=== PATIENT | female | born 1970 | race Caucasian/White ===

== ENCOUNTER 2017-02-04 09:20 | Emergency (ER) | payer OTHER ==
[2017-02-04 09:20] VITALS: BMI 24.0
[2017-02-04] MEDS ORDERED: Belladonna-Phenobarbital PO STA (09:45)
[2017-02-04] MEDS ORDERED: Lactated Ringer's 1,000 ML IV STA (09:45)
--- NOTE | 2017-02-04 09:49 | C.PDOC ---
History Of Present Illness <Niecy Darling - Last Filed: 02/04/17 14:01> <Tawanna Rehman - Last Filed: 02/04/17 14:36> 44 year-old female with PMH of colon and liver cancer, presents to the ED with complaints of abdominal pain for the past week and worsened over the last 2 days. The patient describes the pain as generalized intermittent episodes of cramps and twisting of her abdomen. The pain is non-radiating, and associated with nausea and constipation. She reports last bowel movement was 3 days ago. She states it may be due to narcotic pain medication percocet which she takes daily. Patient states her last chemotherapy treatment was 2 weeks ago. Denies any fever, chills, vomiting, urinary symptoms. (Niecy Darling) History Per: Patient History/Exam Limitations: no limitations Onset/Duration Of Symptoms: Days Current Symptoms Are (Timing): Still Present Location Of Pain/Discomfort: Diffuse <Niecy Darling - Last Filed: 02/04/17 14:01> <Tawanna Rehman - Last Filed: 02/04/17 14:36> Time Seen by Provider: 02/04/17 09:30 Chief Complaint (Nursing): Abdominal Pain Past Medical History Reviewed: Historical Data, Nursing Documentation, Vital Signs - Medical History PMH: Gastritis Surgical History: No Surg Hx, Family History: States: No Known Family Hx - Social History Hx Alcohol Use: No Hx Substance Use: No - Immunization History Hx Tetanus Toxoid Vaccination: No Hx Influenza Vaccination: No Hx Pneumococcal Vaccination: No <Niecy Darling - Last Filed: 02/04/17 14:01> Vital Signs: Last Vital Signs Temp 97.8 F 02/04/17 13:57 Pulse 78 02/04/17 13:57 Resp 16 02/04/17 13:57 BP 146/87 02/04/17 13:57 Pulse Ox 98 02/04/17 14:01 - [facility] Procedures CLOSED ENDOSCOPIC BIOPSY OF LARGE INTESTINE (11/04/14) DX ULTRASOUND-ABDOMEN (11/04/14) PERCUTAN NEEDLE BX OF LIVER (11/04/14) Review Of Systems Constitutional: Negative for: Fever, Chills Gastrointestinal: Positive for: Nausea, Abdominal Pain, Constipation Musculoskeletal: Negative for: Back Pain Skin: Negative for: Rash <Niecy Darling Last Filed: 02/04/17 14:01> Physical Exam - Physical Exam Appears: No Acute Distress, Chronically Ill Skin: Normal Color, Warm, Dry, No Rash Head: Atraumatic, Normacephalic Eye(s): bilateral: PERRL, EOMI Oral Mucosa: Moist Neck: Supple Chest: No Tenderness, Other (Portacath to left upper chest wall) Cardiovascular: Rhythm Regular Respiratory: No Rales, No Rhonchi, No Wheezing, Other (clear to asucultation bilaterally) Gastrointestinal/Abdominal: Soft, Tenderness (Across abdomen), No Guarding, No Rebound, Other (Large ventral abdominal scar) Back: No CVA Tenderness Extremity: No Tenderness, No Swelling Neurological/Psych: Oriented x3, Other (No focal deficit) <Niecy Darling Filed: 02/04/17 14:01> ED Course And Treatment - Laboratory Results Result Diagrams: 02/04/17 10:09 02/04/17 10:09 O2 Sat by Pulse Oximetry: 98 (RA) Pulse Ox Interpretation: Normal - CT Scan/US Abdomen w/contrast Other Rad Studies (CT/US): Read By Radiologist, Radiology Report Reviewed CT/US Interpretation: PROCEDURE: CT Abdomen and Pelvis with contrast. HISTORY : abd pain, constipation. History of colon cancer, breast cancer, liver cancer , gastritis. COMPARISON: CT of the chest, abdomen, and pelvis performed . TECHNIQUE: Contrast dose: 100 mL Visipaque. Radiation dose: Total exam DLP = 255.48 mGy-cm. This CT exam was performed using one or more of the following dose reduction techniques: Automated exposure control, adjustment of the mA and/or kV according to patient size, and/or use of iterative reconstruction technique. FINDINGS: No visible consolidation, pleural effusion , or pneumothorax. 3.5 x 6.2 cm at the level of the hepatic dome with adjacent surgical clips, similar in size to prior study. 2.7 x 3.8 cm heterogeneous hypodense mass in the inferior right hepatic lobe ; previously there were 2 separate lesions evident in this location. Hypoattenuation of the liver compatible with hepatic steatosis. The gallbladder is not identified, presumably surgically removed. The spleen, kidneys, pancreas, and adrenal glands appear unremarkable. Thick-walled stomach may be exaggerated by under distension however alternatives pathologies including gastritis are not excluded ; correlate clinically. The bowel loops appear within normal limits of caliber without evidence of intestinal obstruction. There is no definite free air. Moderate to severe constipation. The appendix appears within normal limits of caliber. No secondary signs of acute appendicitis. The urinary bladder appears unremarkable. No acute osseous abnormality is detected. IMPRESSION: Two lesions are evident in this patient with provided history of known hepatic malignancy. 3.5 x 6.2 cm at the level of the hepatic dome with adjacent surgical clips, similar in size to prior study ; this lesion appears cystic. 2.7 x 3.8 cm heterogeneous indeterminate hypodense mass in the inferior right hepatic lobe ; previously there were 2 separate lesions evident in this location. Correlate clinically. Hypoattenuation of the liver compatible with hepatic steatosis. The gallbladder is not identified, presumably surgically removed. Thick-walled stomach may be exaggerated by under distension however alternatives pathologies including gastritis are not excluded ; correlate clinically. Moderate to severe constipation. Additional incidental findings as above. <Niecy Darling - Last Filed: 02/04/17 14:01> - Laboratory Results Result Diagrams: 02/04/17 10:09 02/04/17 10:09 <Tawanna Rehman - Last Filed: 02/04/17 14:36> Medical Decision Making <Niecy Darling - Last Filed: 02/04/17 14:01> <Tawanna Rehman - Last Filed: 02/04/17 14:36> Medical Decision Making: Impression: abdominal pain Plan: * Labs * CT A/P * UA * IV LR, Pepcid, Prior Visits: Notes and results from previous visits were reviewed. Progress Notes: Labs reviewed. Re-evaluation Time: 1350 Patient feels better. Patient is resting comfortably in no acute distress. Discussed results with patient and provide copy of lab and US reports. Patient expresses understanding. Counseling was provided regarding the diagnosis and prognosis. All questions answered and there is agreement with the plan to discharge home with instructions. Patient stable for discharge. Return if symptoms persist or worsen. Reassessment Condition: Re-examined, Improved Dispo: Discharge home. Patient was recommended to follow up with PCP or clinic in 1-2 days. Return to ED if symptoms worsen. (Niecy Darling) Disposition Counseled Patient/Family Regarding: Studies Performed, Diagnosis, Need For Followup, Rx Given - POA Present On Arrival: None <Niecy Darling - Last Filed: 02/04/17 14:01> - Disposition Disposition Time: 14:36 <Tawanna Rehman - Last Filed: 02/04/17 14:36> - Disposition Referrals: Kan Rousseau MD [Staff Provider] - Disposition: HOME/ ROUTINE Condition: FAIR Additional Instructions: Please take miralax or any laxative available over the counter to help with constipation Take percocet as needed for pain and take colace with narcotics to help soften stool and prevent constipation Drink fluids and eat more fiber Follow up with your doctor for further evaluation. Prescriptions: Acetaminophen/Oxycodone Hydr [Percocet 10/325 mg Tab] 1 tab PO Q8 PRN #20 tab PRN Reason: Pain, Moderate (4-7) Docusate [Colace] 100 mg PO Q8 PRN #60 cap PRN Reason: Constipation Omeprazole 20 mg PO DAILY #20 capsule. Instructions: Constipation (DC), Chronic Pain (DC) Forms: [employer] (Iraqi) Print Language: FRENCH - Clinical Impression Clinical Impression: Constipation, Chronic pain due to neoplasm - PA / CERTIFIED MEDICAL CODER / Resident Statement MD/DO has reviewed & agrees with the documentation as recorded. - Scribe Statement The provider has reviewed the documentation as recorded by the Scribe <Niecy Darling - Last Filed: 02/04/17 14:01> <Tawanna Rehman - Last Filed: 02/04/17 14:36> - Scribe Statement Hollie Cheng All medical record entries made by the Scribe were at my direction and personally dictated by me. I have reviewed the chart and agree that the record accurately reflects my personal performance of the history, physical exam, medical decision making, and the department course for this patient. I have also personally directed, reviewed, and agree with the discharge instructions and disposition. (Niecy Darling)
[2017-02-04] MEDS ORDERED: Lactated Ringer's 1,000 ML ONE (09:59)
[2017-02-04] MEDS ORDERED: Belladonna-Phenobarbital ONE (09:59)
[2017-02-04 10:12] LABS: BASO % 0.3 % (0.0-2.0); EOS % 0.6 % (0.0-4.0); HEMATOCRIT 46.3 % (34.0-47.0); LYMPH # 1.3 K/uL (1.0-4.3); LYMPH % 17.5 % (20.0-40.0); MEAN CELL VOLUME 91.9 fL (81.0-99.0); MEAN CORPUSCULAR HEMOGLOBIN 30.9 pg (27.0-31.0); MEAN CORPUSCULAR HGB CONC 33.7 g/dL (33.0-37.0); MEAN PLATELET VOLUME 7.9 fL (7.2-11.7); MONO # 0.6 K/uL (0.0-0.8); MONO % 8.6 % (0.0-10.0); RED CELL DISTRIBUTION WIDTH 16.4 % (11.5-14.5); WHITE BLOOD COUNT 7.3 K/uL (4.8-10.8)
[2017-02-04 10:23] LABS: ALB/GLOB RATIO 1.2 (1.0-2.1); ALKALINE PHOSPHATASE 311 U/L (38-126); ALT/SGPT 82 U/L (9-52); AST/SGOT 46 U/L (14-36); BILIRUBIN,TOTAL 1.4 mg/dL (0.2-1.3); BLOOD UREA NITROGEN 12 mg/dL (7-17); CALCIUM 9.1 mg/dl (8.6-10.4); CARBON DIOXIDE 32 mmol/L (22-30); CHLORIDE 99 mmol/L (98-107); GFR AFRICAN-AMERICAN > 60; GLUCOSE,RANDOM 119 mg/dL (65-105); POTASSIUM 4.1 mmol/L (3.6-5.2); SODIUM 138 mmol/L (132-148); TOTAL PROTEIN 7.6 g/dL (6.3-8.3)
[2017-02-04 10:23] LABS: RBC URINE 1 /hpf (0-3); URINE BACTERIA RARE (<OCC); URINE BILIRUBIN NEGATIVE (NEGATIVE); URINE BLOOD NEGATIVE (NEGATIVE); URINE COLOR Amber (YELLOW); URINE GLUCOSE (UA) NORMAL (Normal); URINE KETONE TRACE mg/dL (NEGATIVE); URINE LEUKOCYTE ESTERASE TRACE Leu/uL (Negative); URINE PROTEIN 1+ mg/dL (NEGATIVE); WBC URINE 6 /hpf (0-5)
[2017-02-04] MEDS ORDERED: Iodixanol 320 MG/ML 100 ML BOTTLE IV ONE (12:53)
[2017-02-04] MEDS ORDERED: Oxycodone/Acetaminophen 5/325 mg Tab PO STA (13:27)
--- NOTE | 2017-02-04 13:54 | CT ---
PROCEDURE: CT Abdomen and Pelvis with contrast HISTORY: abd pain, constipation. History of colon cancer, breast cancer, liver cancer, gastritis. COMPARISON: CT of the chest, abdomen, and pelvis performed 03/30/15 TECHNIQUE: Contrast dose: 100 mL Visipaque Radiation dose: Total exam DLP = 255.48 mGy-cm. This CT exam was performed using one or more of the following dose reduction techniques: Automated exposure control, adjustment of the mA and/or kV according to patient size, and/or use of iterative reconstruction technique. FINDINGS: No visible consolidation, pleural effusion, or pneumothorax. 3.5 x 6.2 cm at the level of the hepatic dome with adjacent surgical clips, similar in size to prior study. 2.7 x 3.8 cm heterogeneous hypodense mass in the inferior right hepatic lobe ; previously there were 2 separate lesions evident in this location. Hypoattenuation of the liver compatible with hepatic steatosis. The gallbladder is not identified, presumably surgically removed. The spleen, kidneys, pancreas, and adrenal glands appear unremarkable. Thick-walled stomach may be exaggerated by under distension however alternatives pathologies including gastritis are not excluded ; correlate clinically. The bowel loops appear within normal limits of caliber without evidence of intestinal obstruction. There is no definite free air. Moderate to severe constipation. The appendix appears within normal limits of caliber. No secondary signs of acute appendicitis. The urinary bladder appears unremarkable. No acute osseous abnormality is detected. IMPRESSION: Two lesions are evident in this patient with provided history of known hepatic malignancy. 3.5 x 6.2 cm at the level of the hepatic dome with adjacent surgical clips, similar in size to prior study ; this lesion appears cystic. 2.7 x 3.8 cm heterogeneous indeterminate hypodense mass in the inferior right hepatic lobe ; previously there were 2 separate lesions evident in this location. Correlate clinically. Hypoattenuation of the liver compatible with hepatic steatosis. The gallbladder is not identified, presumably surgically removed. Thick-walled stomach may be exaggerated by under distension however alternatives pathologies including gastritis are not excluded ; correlate clinically. Moderate to severe constipation. Additional incidental findings as above.
[2017-02-04] MEDS ORDERED: Oxycodone/Acetaminophen 5/325 mg Tab ONE (13:55)
[2017-02-04 13:58] VITALS: BP 146/87; PULSE 78; RESP 16; TEMP 97.8
[2017-02-04 14:01] VITALS: O2SAT 98
== END 2017-02-04 14:32 | disposition home or self-care (01) ==
LOC: C.ER 09:20
DX: G89.3 Neoplasm related pain (acute) (chronic) (principal); K59.00 Constipation, unspecified
CPT/HCPCS: 74177; 80053; 81001; 83690; 85025; 87086; 96374; 96375; 99285; J2405; J7120; Q9967

== ENCOUNTER 2017-04-22 04:23 | Emergency (ER) | payer OTHER ==
[2017-04-22 04:23] VITALS: BMI 24.0
[2017-04-22 04:33] VITALS: RESP 20; O2SAT 98
--- NOTE | 2017-04-22 04:33 | C.PDOC ---
History Of Present Illness Patient presents to ED today with complaints of nausea, vomiting and abdominal pain. Patient with history of metastatic bone cancer and liver cancer and had radiation injected directly in her abdomen. She currently is unable to tolerate any PO intake. No chest pain, shortness of breath, fever or chills. No other complaints. Time Seen by Provider: 04/22/17 04:33 Chief Complaint (Nursing): Abdominal Pain History Per: Patient History/Exam Limitations: no limitations Onset/Duration Of Symptoms: Days Current Symptoms Are (Timing): Still Present Location Of Pain/Discomfort: Diffuse Associated Symptoms: Nausea, Vomiting. denies: Fever, Chills Past Medical History Reviewed: Historical Data, Nursing Documentation, Vital Signs Vital Signs: Last Vital Signs Temp 98.2 F 04/22/17 04:30 Pulse 77 04/22/17 04:30 Resp 20 04/22/17 04:30 BP 168/95 H 04/22/17 04:30 Pulse Ox 98 04/22/17 04:49 - Medical History PMH: Gastritis, Malignancy (bone, liver) Surgical History: - [facility] Procedures CLOSED ENDOSCOPIC BIOPSY OF LARGE INTESTINE (11/04/14) DX ULTRASOUND-ABDOMEN (11/04/14) PERCUTAN NEEDLE BX OF LIVER (11/04/14) Family History: States: Unknown Family Hx - Social History Hx Alcohol Use: No Hx Substance Use: No - Immunization History Hx Tetanus Toxoid Vaccination: No Hx Influenza Vaccination: No Hx Pneumococcal Vaccination: No Review Of Systems Constitutional: Negative for: Fever, Chills Cardiovascular: Negative for: Chest Pain Respiratory: Negative for: Shortness of Breath Gastrointestinal: Positive for: Nausea, Vomiting Physical Exam - Physical Exam Appears: Non-toxic Skin: Normal Color Head: Normacephalic Eye(s): bilateral: Normal Inspection Oral Mucosa: Dry Neck: Supple Chest: Symmetrical Cardiovascular: Rhythm Regular Respiratory: No Rales, No Rhonchi, No Wheezing Gastrointestinal/Abdominal: Bowel Sounds, Soft, Tenderness (mild to moderate diffuse tenderness), Other (large ventral abdominal scar, rlq injection site c&d ) Extremity: Bilateral: Atraumatic Neurological/Psych: Oriented x3, Normal Speech, Normal Cognition Gait: Steady ED Course And Treatment - Laboratory Results Result Diagrams: 04/22/17 04:40 04/22/17 04:40 O2 Sat by Pulse Oximetry: 98 (RA) Pulse Ox Interpretation: Normal Progress Note: tolerating po. pain free Reevaluation Time: 05:36 Reassessment Condition: Improved Disposition Counseled Patient/Family Regarding: Studies Performed, Diagnosis, Need For Followup, Rx Given - Disposition Referrals: Kan Rousseau MD [Staff Provider] - Disposition: HOME/ ROUTINE Disposition Time: 04:33 Condition: FAIR Additional Instructions: Please use stool softeners Prescriptions: HYDROmorphone [Dilaudid] 1 mg PO QID PRN #20 tab PRN Reason: Pain, Severe (8-10) Ondansetron ODT [Zofran ODT] 1 odt PO TID #30 odt Instructions: Nausea and Vomiting, Adult (DC) Forms: [employer] (Guatemalan) - Clinical Impression Clinical Impression: Abdominal pain, Nausea, Vomiting - Scribe Statement The provider has reviewed the documentation as recorded by the Scribe (Donya Mercer) Provider Attestation: All medical record entries made by the Scribe were at my direction and personally dictated by me. I have reviewed the chart and agree that the record accurately reflects my personal performance of the history, physical exam, medical decision making, and the department course for this patient. I have also personally directed, reviewed, and agree with the discharge instructions and disposition.
[2017-04-22] MEDS ORDERED: Sodium Chloride 0.9% 1,000 ML IV ONE (04:35)
[2017-04-22] MEDS ORDERED: HYDROmorphone 1 mg/ml ISec IVP STA (04:35)
[2017-04-22] MEDS ORDERED: Sodium Chloride 0.9% 1,000 ML ONE (04:38)
[2017-04-22 04:45] LABS: MEAN CELL VOLUME 92.2 fL (81.0-99.0)
[2017-04-22 04:49] LABS: BASO % 0.2 % (0.0-2.0); EOS % 0.1 % (0.0-4.0); HEMOGLOBIN 15.1 g/dL (11.0-16.0); LYMPH # 1.1 K/uL (1.0-4.3); LYMPH % 9.4 % (20.0-40.0); MEAN CORPUSCULAR HEMOGLOBIN 31.7 pg (27.0-31.0); MEAN CORPUSCULAR HGB CONC 34.4 g/dL (33.0-37.0); MEAN PLATELET VOLUME 8.3 fL (7.2-11.7); MONO # 0.9 K/uL (0.0-0.8); MONO % 7.2 % (0.0-10.0); NEUT # 10.1 K/uL (1.8-7.0); NEUT % 83.1 % (50.0-75.0); NRBC % 0.4 % (0.0-2.0); PLATELET COUNT 136 K/uL (130-400); RBC 4.76 Mil/uL (3.80-5.20); RED CELL DISTRIBUTION WIDTH 14.6 % (11.5-14.5); WHITE BLOOD COUNT 12.2 K/uL (4.8-10.8)
[2017-04-22 05:01] LABS: ALB/GLOB RATIO 1.1 (1.0-2.1); ALBUMIN 4.6 g/dL (3.5-5.0); ALT/SGPT 166 U/L (9-52); AST/SGOT 157 U/L (14-36); BLOOD UREA NITROGEN 9 mg/dL (7-17); CALCIUM 9.7 mg/dl (8.6-10.4); GFR AFRICAN-AMERICAN > 60; GFR NON-AFRICAN AMERICAN > 60; LIPASE 531 U/L (23-300)
[2017-04-22 05:52] VITALS: BP 114/76; PULSE 87; TEMP 98
[2017-04-22 07:17] LABS: LYMPHOCYTE 8 % (20-40); MONOCYTE 5 % (0-10); NEUTROPHIL 87 % (50-75); PLATELET ESTIMATE NORMAL (NORMAL); TOTAL CELLS COUNTED 100
== END 2017-04-22 06:15 | disposition home or self-care (01) ==
LOC: C.ER 04:23
DX: R10.9 Unspecified abdominal pain (principal); R11.2 Nausea with vomiting, unspecified
CPT/HCPCS: 80053; 83690; 85025; 96361; 96374; 96375; 99284; C9113; J1170; J2405; J7040